=== PATIENT | male | born 1985 | race Caucasian/White ===

== ENCOUNTER 2017-11-07 10:50 | Observation (INO) | payer SELFPAY ==
[2017-11-07] MEDS ORDERED: LORazepam 2 MG/ML VIAL ONE ×3 (10:59→12:09)
[2017-11-07] MEDS ORDERED: NA CHLORIDE 0.9% 2,000 ML ONE (10:59)
[2017-11-07] MEDS ORDERED: ONDANSETRON 4 MG/2 ML VIAL ONE (11:10)
[2017-11-07 11:33] LABS: Protime INR 1.54
[2017-11-07 11:35] LABS: Absolute Lymphocytes (CBC) 1.2 K/uL (0.7-4.9); Absolute Monocytes 0.8 K/uL (0.1-1.3); Absolute Neutrophil 8.1 K/uL (1.8-8.0); Basophils % 0.7 % (0-1.3); Eosinophils % 0.4 % (0-4.4); Hematocrit 41.8 % (39.6-49.0); Lymphocytes % 11.8 % (15.3-44.8); MCH 30.2 pg (27.0-35.0); MCV 87.7 fL (80-100); MPV 7.9 fL (7.6-11.3); Monocytes % 7.6 % (3.3-12.3); RBC Red Blood Cell Count 4.77 M/uL (4.33-5.43)
[2017-11-07 12:12] LABS: ALT/SGPT 77 U/L (12-78); AST/SGOT 116 U/L (15-37); Alkaline Phosphatase 76 U/L (45-117); BUN Blood Urea Nitrogen 14 mg/dL (7-18); Bicarbonate 26 mmol/L (21-32); Bilirubin Direct 0.2 mg/dL (0-0.2); Bilirubin Total 0.6 mg/dL (0.2-1.0); Glucose Level 90 mg/dL (74-106); Potassium 3.2 mmol/L (3.5-5.1); Protein, Total 7.2 g/dL (6.4-8.2); Sodium Level 140 mmol/L (136-145)
[2017-11-07 12:26] LABS: Alcohol Serum/Plasma 4 mg/dL (<3); Creatine Phosphokinase 2631 U/L (39-308)
[2017-11-07 12:34] LABS: Barbiturates NEGATIVE (NEGATIVE); Benzodiazepines NEGATIVE (NEGATIVE); Cocaine NEGATIVE (NEGATIVE); METHAMPHETAM POSITIVE (NEGATIVE); Methadone NEGATIVE (NEGATIVE); Opiates NEGATIVE (NEGATIVE); Phencyclidine NEGATIVE (NEGATIVE); THC Cannibis POSITIVE (NEGATIVE)
[2017-11-07 12:34] LABS: Urine Blood NEGATIVE (NEG); Urine Glucose NEGATIVE (NEG); Urine Protein TRACE (NEG); Urine Specific Gravity >1.030 (1.005-1.030)
--- NOTE | 2017-11-07 12:42 | EDPHYS ---
Physician Documentation [facility] Name: Napoleon Shaw Age: 32 yrs Sex: Male : 1985 Arrival Date: 11/07/2017 Time: 10:51 Bed 3 Private MD: ED Physician Leandro Stockton HPI: 11/07 11:59 This 32 yrs old Male presents to ER via EMS with complaints of Drug Abuse. jr8 11:59 The patient presents to the emergency department after a known overdose, a result of jr8 recreational substance abuse. Context: Method: the patient has a confirmed or suspected ingestion, Time: for the last 4 days. Associated signs and symptoms: Pertinent positives: anxiety, nausea, vomiting. Severity of symptoms: At their worst the symptoms were moderate in the emergency department the symptoms are unchanged. The patient has experienced similar episodes in the past, a few times. The patient has not recently seen a physician. Patient with history of drug abuse in past. Stated that he had been doing bath salts for the past 4 days. After stopping them for past day stated that he now is uncontrollably shaking, having n/v, and anxiety . Historical: - Allergies: 10:53 Risperdal; la1 - PMHx: 10:53 None; la1 - Immunization history:: Adult Immunizations up to date. - Social history:: Smoking status: Patient uses tobacco products, chewing tobacco. - Ebola Screening: : No symptoms or risks identified at this time. ROS: 11:59 Eyes: Negative for injury, pain, redness, and discharge, ENT: Negative for injury, jr8 pain, and discharge, Neck: Negative for injury, pain, and swelling, Cardiovascular: Negative for chest pain, palpitations, and edema, Respiratory: Negative for shortness of breath, cough, wheezing, and pleuritic chest pain, Back: Negative for injury and pain, MS/Extremity: Negative for injury and deformity, Skin: Negative for injury, rash, and discoloration, Neuro: Negative for headache, weakness, numbness, tingling, and seizure. 11:59 Abdomen/GI: Positive for nausea and vomiting, Negative for abdominal pain, diarrhea, constipation, abdominal cramps, abdominal distension, anorexia, dysphagia, hematemesis, black/tarry stool, rectal pain, rectal bleeding, bowel incontinence, flatulence. 11:59 Psych: Positive for anxiety, drug dependence, Negative for drug dependence, suicide gesture, suicidal ideation. Exam: 11:59 Eyes: Pupils equal round and reactive to light, extra-ocular motions intact. Lids and jr8 lashes normal. Conjunctiva and sclera are non-icteric and not injected. Cornea within normal limits. Periorbital areas with no swelling, redness, or edema. ENT: Nares patent. No nasal discharge, no septal abnormalities noted. Tympanic membranes are normal and external auditory canals are clear. Oropharynx with no redness, swelling, or masses, exudates, or evidence of obstruction, uvula midline. Mucous membranes moist. Neck: Trachea midline, no thyromegaly or masses palpated, and no cervical lymphadenopathy. Supple, full range of motion without nuchal rigidity, or vertebral point tenderness. No Meningismus. Chest/axilla: Normal chest wall appearance and motion. Nontender with no deformity. No lesions are appreciated. Cardiovascular: Sinus Tachycardia with a normal S1 and S2. No gallops, murmurs, or rubs. Normal PMI, no JVD. No pulse deficits. Respiratory: Lungs have equal breath sounds bilaterally, clear to auscultation and percussion. No rales, rhonchi or wheezes noted. No increased work of breathing, no retractions or nasal flaring. Abdomen/GI: Soft, non-tender, with normal bowel sounds. No distension or tympany. No guarding or rebound. No evidence of tenderness throughout. Back: No spinal tenderness. No costovertebral tenderness. Full range of motion. Skin: Warm, dry with normal turgor. Normal color with no rashes, no lesions, and no evidence of cellulitis. MS/ Extremity: Pulses equal, no cyanosis. Neurovascular intact. Full, normal range of motion. Neuro: Awake and alert, GCS 15, oriented to person, place, time, and situation. Cranial nerves II-XII grossly intact. Motor strength 5/5 in all extremities. Sensory grossly intact. Cerebellar exam normal. Normal gait. 11:59 Psych: Behavior/mood is anxious, Affect is animated, Oriented to person, place, time, Patient has no thoughts/intents to harm self or others. Judgement / Insight is normal. Memory is normal. Delusions/hallucinations are not present. Vital Signs: 10:53 BP 140 / 83; Pulse 115; Resp 22; Pulse Ox 96% on R/A; Weight 77.11 kg; Height 5 ft. 7 la1 in. (170.18 cm); 11:27 BP 141 / 72; Pulse 104; Resp 19; Pulse Ox 100% on R/A; la1 12:09 BP 160 / 70; Pulse 107; Resp 19; Pulse Ox 100% on R/A; la1 13:11 BP 128 / 84; Pulse 82; Resp 16; Pulse Ox 100% on R/A; la1 14:15 BP 136 / 93; Pulse 72; Resp 16; Pulse Ox 100% on R/A; la1 14:15 BP 136 / 93; Pulse 65; Resp 18; Temp 97.5; Pulse Ox 99% on R/A; Pain 0/10; cc3 10:53 Body Mass Index 26.63 (77.11 kg, 170.18 cm) la1 MDM: 10:52 Patient medically screened. 8 12:40 Data reviewed: vital signs, nurses notes, lab test result(s), EKG. Data interpreted: jr8 Pulse oximetry: on room air is 100 %. Interpretation: normal. Counseling: I had a detailed discussion with the patient and/or guardian regarding: the historical points, exam findings, and any diagnostic results supporting the discharge/admit diagnosis, lab results, the need for further work-up and treatment in the hospital. Physician consultation: Fady Thomas MD was called at 12:41, was contacted at 12:41, regarding admission, to the telemetry unit. consult, patient's condition, and will see patient. 11/07 10:53 Order name: Acetaminophen; Complete Time: 12:27 11/07 10:53 Order name: Basic Metabolic Panel; Complete Time: 12:27 11/07 10:53 Order name: CBC with Diff; Complete Time: 11:44 11/07 10:53 Order name: ETOH Level; Complete Time: 12:27 11/07 10:53 Order name: Hepatic Function; Complete Time: 12:27 11/07 10:53 Order name: PT-INR; Complete Time: 11:44 11/07 10:53 Order name: Salicylate; Complete Time: 12:15 11/07 10:53 Order name: Urine Drug Screen; Complete Time: 12:36 11/07 10:53 Order name: CPK; Complete Time: 12:27 11/07 12:21 Order name: Urine Dipstick--Ancillary (enter results); Complete Time: 12:36 hb 11/07 10:53 Order name: EKG; Complete Time: 10:54 11/07 10:53 Order name: EKG - Nurse/Tech; Complete Time: 11:11 11/07 10:53 Order name: IV Saline Lock; Complete Time: 11:11 11/07 10:53 Order name: Labs collected and sent; Complete Time: 11:11 11/07 10:53 Order name: Urine Dipstick-Ancillary (obtain specimen); Complete Time: 12:22 Administered Medications: 11:10 Drug: NS 0.9% 1000 ml Route: IV; Rate: 1000 ml; Site: right antecubital; la1 12:24 Follow up: IV Status: Completed infusion la1 11:10 Drug: NS 0.9% 1000 ml Route: IV; Rate: 1000 ml; Site: right antecubital; la1 12:24 Follow up: IV Status: Completed infusion la1 11:10 Drug: Ativan 2 mg Route: IVP; Site: right antecubital; la1 12:24 Follow up: Response: No adverse reaction la1 11:11 Drug: Zofran 4 mg Route: IVP; Site: right antecubital; la1 12:24 Follow up: Response: No adverse reaction; Nausea is decreased la1 11:27 Drug: Ativan 2 mg Route: IVP; Site: right antecubital; la1 12:25 Follow up: Response: No adverse reaction la1 12:08 Drug: Ativan 2 mg Route: IVP; Site: right antecubital; la1 12:23 Follow up: Response: No adverse reaction la1 13:01 Drug: NS 0.9% 1000 ml Route: IV; Rate: 250 ml/hr; Site: right antecubital; hb 13:13 Follow up: IV Status: Infusion continued upon admission la1 Disposition: 11/07/17 12:42 Hospitalization ordered by Fady Thomas for Observation. Preliminary diagnosis are Rhabdomyolysis, Dehydration. - Bed requested for Telemetry/MedSurg (observation). - Status is Observation. cc3 - Condition is Stable. - Problem is new. - Symptoms have improved. UTI on Admission? No Addendum: 11/09/2017 15:36 Co-signature as Attending Physician, Leandro Stockton MD. g s Signatures: Dispatcher [employer] EDViji Fernandez, RN RN dw Kaleb Mayer PA PA jr8 Case Sherman RN RN la1 Eva Howard, RN RN Leandro Stockton MD MD Heydi Zuniga cc3 Corrections: (The following items were deleted from the chart) 11/07 14:14 12:42 Hospitalization Ordered by Fady Thomas MD for Observation. Preliminary diagnosis dw is Rhabdomyolysis; Dehydration. Bed requested for Telemetry/MedSurg (observation). Status is Observation. Condition is Stable. Problem is new. Symptoms have improved. UTI on Admission? No. jr8 14:55 14:14 11/07/2017 12:42 Hospitalization Ordered by Fady Thomas MD for Observation. cc3 Preliminary diagnosis is Rhabdomyolysis; Dehydration. Bed requested for Telemetry/MedSurg (observation). Status is Observation. Condition is Stable. Problem is new. Symptoms have improved. UTI on Admission? No. dw
--- NOTE | 2017-11-07 12:42 | ER ---
Nurse's Notes [facility] Name: Napoleon Shaw Age: 32 yrs Sex: Male : 1985 Arrival Date: 11/07/2017 Time: 10:51 Bed 3 Private MD: Diagnosis: Rhabdomyolysis;Dehydration Presentation: 11/07 10:51 Presenting complaint: Patient states: I took bath salts on Saturday and I have not been la1 able to sleep. Transition of care: patient was not received from another setting of care. Onset of symptoms was November 07, 2017. Risk Assessment: Do you want to hurt yourself or someone else? Patient reports no desire to harm self or others. Initial Sepsis Screen: Does the patient meet any 2 criteria? No. Patient's initial sepsis screen is negative. Does the patient have a suspected source of infection? No. Patient's initial sepsis screen is negative. Care prior to arrival: None. 10:51 Method Of Arrival: EMS: [facility] la1 10:51 Acuity: ANN 2 la1 Historical: - Allergies: 10:53 Risperdal; la1 - PMHx: 10:53 None; la1 - Immunization history:: Adult Immunizations up to date. - Social history:: Smoking status: Patient uses tobacco products, chewing tobacco. - Ebola Screening: : No symptoms or risks identified at this time. Screenin:02 Abuse screen: Denies threats or abuse. Denies injuries from another. Nutritional ph screening: No deficits noted. Tuberculosis screening: No symptoms or risk factors identified. Fall Risk None identified. Assessment: 11:01 Reassessment: Pocket knife given to hotel security officer. ph 11:10 General: Appears ill, Behavior is agitated, anxious. Pain: Denies pain. Neuro: Level of la1 Consciousness is awake, alert, obeys commands, confused, Oriented to person, place, time, situation. Cardiovascular: Capillary refill < 3 seconds Patient's skin is warm and dry. Respiratory: Airway is patent Respiratory effort is even, unlabored, Respiratory pattern is regular, symmetrical, Breath sounds are clear bilaterally. GI: Reports nausea, vomiting. : No signs and/or symptoms were reported regarding the genitourinary system. 13:13 Reassessment: No changes from previously documented assessment. Patient and/or family la1 updated on plan of care and expected duration. Pain level reassessed. Patient is alert, oriented x 3, equal unlabored respirations, skin warm/dry/pink. General: Behavior is calm, cooperative. 14:20 Reassessment: Patient appears in no apparent distress at this time. comfortably cc3 sleeping, no complaints noted. Overdose: 11:12 Patient took Bath salts on saturday. la1 Vital Signs: 10:53 BP 140 / 83; Pulse 115; Resp 22; Pulse Ox 96% on R/A; Weight 77.11 kg; Height 5 ft. 7 la1 in. (170.18 cm); 11:27 BP 141 / 72; Pulse 104; Resp 19; Pulse Ox 100% on R/A; la1 12:09 BP 160 / 70; Pulse 107; Resp 19; Pulse Ox 100% on R/A; la1 13:11 BP 128 / 84; Pulse 82; Resp 16; Pulse Ox 100% on R/A; la1 14:15 BP 136 / 93; Pulse 72; Resp 16; Pulse Ox 100% on R/A; la1 14:15 BP 136 / 93; Pulse 65; Resp 18; Temp 97.5; Pulse Ox 99% on R/A; Pain 0/10; cc3 10:53 Body Mass Index 26.63 (77.11 kg, 170.18 cm) la1 ED Course: 10:51 Patient arrived in ED. la1 10:51 EKG done, by ED staff, reviewed by Kaleb BILLS. eb 10:52 Triage completed. la1 10:52 [facility]. jr8 10:52 Leandro Stockton MD is Attending Physician. jr8 11:09 Case Sherman, LENNOX is Primary Nurse. la1 11:09 Arm band placed on right wrist. EKG completed in triage. Results shown to . la1 11:10 Inserted saline lock: 18 gauge in right antecubital area, using aseptic technique. la1 Blood collected. 11:12 Bed in low position. Side rails up X2. vehicle monitor technician on. Pulse ox on. NIBP on. la1 12:22 Urine Drug Screen Sent. eb 12:41 Fady Thomas MD is Hospitalizing Provider. jr8 14:20 No provider procedures requiring assistance completed. cc3 14:20 Patient admitted, IV remains in place. intact, No redness/swelling at site. cc3 14:30 Report given to Margaret HIGH for admission to room 201. cc3 Administered Medications: 11:10 Drug: NS 0.9% 1000 ml Route: IV; Rate: 1000 ml; Site: right antecubital; la1 12:24 Follow up: IV Status: Completed infusion la1 11:10 Drug: NS 0.9% 1000 ml Route: IV; Rate: 1000 ml; Site: right antecubital; la1 12:24 Follow up: IV Status: Completed infusion la1 11:10 Drug: Ativan 2 mg Route: IVP; Site: right antecubital; la1 12:24 Follow up: Response: No adverse reaction la1 11:11 Drug: Zofran 4 mg Route: IVP; Site: right antecubital; la1 12:24 Follow up: Response: No adverse reaction; Nausea is decreased la1 11:27 Drug: Ativan 2 mg Route: IVP; Site: right antecubital; la1 12:25 Follow up: Response: No adverse reaction la1 12:08 Drug: Ativan 2 mg Route: IVP; Site: right antecubital; la1 12:23 Follow up: Response: No adverse reaction la1 13:01 Drug: NS 0.9% 1000 ml Route: IV; Rate: 250 ml/hr; Site: right antecubital; hb 13:13 Follow up: IV Status: Infusion continued upon admission la1 Outcome: 12:42 Decision to Hospitalize by Provider. jr8 14:30 Admitted to Med/surg accompanied by tech, via stretcher, room 201, Report called to LENNOX Robles. 14:30 Condition: stable cc3 14:55 Patient left the ED. cc3 Signatures: Kaleb Mayer PA PA jr8 Case Sherman RN RN laSuzan Eric RN RN Eva Howard RN Margaret Pool Charlene ccWilliam Corrections: (The following items were deleted from the chart) 14:50 14:15 Temp 97.5F; la1 cc3
[2017-11-07] MEDS ORDERED: NA CHLORIDE 0.9% 1,000 ML ONE (13:02)
[2017-11-07] MEDS ORDERED: NA CHLORIDE 0.9% 1,000 ML IV SCH (14:44)
[2017-11-07 15:44] LABS: Urine Appearance CLEAR; Urine Bilirubin NEGATIVE (NEG); Urine Blood NEGATIVE (NEG); Urine Color YELLOW; Urine Glucose NEGATIVE (NEG); Urine Protein NEGATIVE (NEG); Urine Specific Gravity 1.015 (1.005-1.030); Urine Urobilinogen 0.2 mg/dL (0.2-1.0)
[2017-11-07 15:45] LABS: Urine Microscopic Reflex NO UMIC
[2017-11-07] MEDS ORDERED: HYDRALAZINE HCL 20 MG/ML VIAL IV PRN (17:24)
--- NOTE | 2017-11-07 17:27 | P.HP ---
Certification for Inpatient Patient admitted to: Inpatient With expected LOS: >2 Midnights Patient will require the following post-hospital care: None Practitioner: I am a practitioner with admitting privileges, knowledge of patient current condition, hospital course, and medical plan of care. Services: Services provided to patient in accordance with Admission requirements found in Title 42 Section 412.3 of the Code of Federal Regulations Patient History Date of Service: 11/07/17 History of Present Illness: 32 y/o man was sent to ER by EMS c/o shaking. He states he was using bath salts for several days, agiated, nervous, unable to sleep and vomiting. In ER, his CPK was elevated and he is admitted for further management Allergies risperidone [From Risperdal] Allergy (Verified 06/18/16 23:43) Unknown - Past Medical/Surgical History Diabetic: No -: Bipolar disorder -: Drug abuse Psychosocial/ Personal History: Not able to be obtained. - Social History Smoking Status: Unknown if ever smoked Alcohol use: Yes CD- Drugs: Yes Place of Residence: Home Review of Systems 10-point ROS is otherwise unremarkable Physical Examination - Vital Signs Temperature: 97.5 F Blood Pressure: 136/93 Pulse: 65 Respirations: 18 - Physical Exam General: In no apparent distress, Other HEENT: Atraumatic, PERRLA, Mucous membr. moist/pink, EOMI, Sclerae nonicteric Neck: Supple, 2+ carotid pulse no bruit, No LAD, Without JVD or thyroid abnormality Respiratory: Clear to auscultation bilaterally, Normal air movement Cardiovascular: Regular rate/rhythm, Normal S1 S2 Gastrointestinal: Normal bowel sounds, No tenderness Musculoskeletal: No tenderness Integumentary: No rashes Neurological: Normal gait, Normal speech, Normal strength at 5/5 x4 extr, Normal tone, Normal affect Lymphatics: No axilla or inguinal lymphadenopathy - Studies Laboratory Data (last 24 hrs) 11/07/17 11:00: PT 18.3 H, INR 1.54 11/07/17 11:00: WBC 10.2, Hgb 14.4, Hct 41.8, Plt Count 317 11/07/17 11:00: Sodium 140, Potassium 3.2 L, BUN 14, Creatinine 1.00, Glucose 90 , Total Bilirubin 0.6, AST 116 H, ALT 77, Alkaline Phosphatase 76 Assessment and Plan - Problems (Diagnosis) (1) Amphetamine abuse Onset Date: 06/19/16 Current Visit: Yes Status: Acute (2) Altered mental status Onset Date: 06/19/16 Current Visit: Yes Status: Acute Qualifiers: Altered mental status type: disorientation Qualified Code(s): R41.0 - Disorientation, unspecified (3) Bipolar disorder with psychotic features Onset Date: 06/19/16 Current Visit: Yes Status: Chronic (4) Hypokalemia Onset Date: 06/19/16 Current Visit: Yes Status: Acute (5) Rhabdomyolysis Onset Date: 06/19/16 Current Visit: Yes Status: Acute Qualifiers: Rhabdomyolysis type: non-traumatic - Plan --IVF repelacement with KCL --Ativan PRN --F/U renal and CPK - Advance Directives Does patient have a Living Will: No Does patient have a Durable POA for Healthcare: No
[2017-11-07] MEDS: D5 0.45 NS 1,000 ML with POTASSIUM CL 10 MEQ IV SCH ×2 (18:05)
--- NOTE | 2017-11-07 18:37 | EKG ---
Test Date: 2017-11-07 Test Time: 10:51:43 [employer]: EB MEASUREMENT RESULTS: Intervals: Rate: 101 WI: 132 QRSD: 72 QT: 382 QTc: 495 [place]: P: 64 WI: 132 QRS: 46 T: 52 INTERPRETIVE STATEMENTS: Sinus tachycardia Possible Left atrial enlargement Borderline ECG Compared to ECG 06/20/2016 00:27:42 Sinus rhythm no longer present Electronically Signed On 11-07-17 18:37:06 CDT by Ian Rocha
[2017-11-07] MEDS: LORazepam 2 MG/ML VIAL IV PRN (20:33)
[2017-11-07] MEDS: METOPROLOL TAR 50 MG TAB PO SCH (20:35)
[2017-11-08] MEDS: LORazepam 2 MG/ML VIAL IV PRN ×2 (02:14→06:33)
[2017-11-08] MEDS: D5 0.45 NS 1,000 ML with POTASSIUM CL 10 MEQ IV SCH ×2 (02:31)
[2017-11-08] MEDS ORDERED: clonazePAM 1 MG TAB PO ONE (04:40)
[2017-11-08] MEDS ORDERED: LORazepam 2 MG/ML VIAL IV ONE (06:24)
[2017-11-08 06:33] LABS: ALT/SGPT 54 U/L (12-78); AST/SGOT 63 U/L (15-37); Albumin 2.9 g/dL (3.4-5.0); Alkaline Phosphatase 55 U/L (45-117); BUN Blood Urea Nitrogen 5 mg/dL (7-18); Bicarbonate 26 mmol/L (21-32); Bilirubin Total 0.6 mg/dL (0.2-1.0); Creatine Phosphokinase 999 U/L (39-308); Glucose Level 92 mg/dL (74-106); Potassium 3.2 mmol/L (3.5-5.1); Protein, Total 5.6 g/dL (6.4-8.2); Sodium Level 140 mmol/L (136-145)
[2017-11-08] MEDS: METOPROLOL TAR 50 MG TAB PO SCH (09:00)
[2017-11-08] MEDS ORDERED: POTASSIUM CL SA 10 MEQ TAB PO ONE (09:47)
--- NOTE | 2017-11-08 15:17 | P.DS ---
Admission Date: 11/07/17 Discharge Date: 11/08/17 Disposition: AMA-LEFT AGAINST MEDICAL ADVIC - Problems (1) Amphetamine abuse Onset Date: 06/19/16 Status: Acute (2) Altered mental status Onset Date: 06/19/16 Status: Acute Qualifiers: Altered mental status type: disorientation Qualified Code(s): R41.0 - Disorientation, unspecified (3) Bipolar disorder with psychotic features Onset Date: 06/19/16 Status: Chronic (4) Hypokalemia Onset Date: 06/19/16 Status: Acute (5) Rhabdomyolysis Onset Date: 06/19/16 Status: Acute Qualifiers: Rhabdomyolysis type: non-traumatic Brief History of Present Illness: 32 y/o man was sent to ER by EMS c/o shaking. He states he was using bath salts for several days, agiated, nervous, unable to sleep and vomiting. In ER, his CPK was elevated and he is admitted for further management Hospital Course: He signed AMA and left hospital before I can see him Vital Signs/Physical Exam: Temp Pulse Resp BP Pulse Ox 98.2 F 65 16 115/60 99 11/08/17 08:00 11/08/17 09:00 11/08/17 08:00 11/08/17 09:00 11/08/17 08:00 Laboratory Data at Discharge: WBC 10.2 K/uL (4.3-10.9) 11/07/17 11:00 Hgb 14.4 g/dL (13.6-17.9) 11/07/17 11:00 Hct 41.8 % (39.6-49.0) 11/07/17 11:00 Plt Count 317 K/uL (152-406) 11/07/17 11:00 PT 18.3 SECONDS (9.5-12.5) H 11/07/17 11:00 INR 1.54 11/07/17 11:00 Sodium 140 mmol/L (136-145) 11/08/17 06:03 Potassium 3.2 mmol/L (3.5-5.1) L 11/08/17 06:03 BUN 5 mg/dL (7-18) L 11/08/17 06:03 Creatinine 0.70 mg/dL (0.55-1.3) 11/08/17 06:03 Glucose 92 mg/dL (74-106) 11/08/17 06:03 Total Bilirubin 0.6 mg/dL (0.2-1.0) 11/08/17 06:03 AST 63 U/L (15-37) H 11/08/17 06:03 ALT 54 U/L (12-78) 11/08/17 06:03 Alkaline Phosphatase 55 U/L (45-117) 11/08/17 06:03 Home Medications: NK [No Home Meds] 11/07/17
== END 2017-11-08 10:08 | disposition left against medical advice (07) ==
LOC: ER 10:50 → ERHOLD 12:50 → 2ND 14:30
PROVIDERS: ADMIT Internal Medicine Hematology & Oncology; ATTEND Internal Medicine Hematology & Oncology
DX: F15.10 Other stimulant abuse, uncomplicated (principal); F31.9 Bipolar disorder, unspecified; E87.6 Hypokalemia; M62.82 Rhabdomyolysis
CPT/HCPCS: 36415; 80048; 80053; 80076; 80307; 80320; 80329; 81003; 82550; 85025; 85610; 93005; 96361; 96374; 96375; 99285; G0378; J2405; J7030

== ENCOUNTER 2018-01-12 21:15 | Emergency (ER) | payer SELFPAY ==
--- NOTE | 2018-01-12 22:24 | EDPHYS ---
Physician Documentation [facility] Name: Napoleon Shaw Age: 32 yrs Sex: Male : 1985 Arrival Date: 01/12/2018 Time: 21:19 Bed 7 Private MD: ED Physician Prashanth Mancini HPI: 01/12 22:20 This 32 yrs old Male presents to ER via Ambulatory with complaints of rn INFECTED FOOT. 22:20 The patient presents with pain. The complaints affect the right foot and left foot. rn 22:21 Onset: The symptoms/episode began/occurred yesterday. Modifying factors: The symptoms rn are alleviated by nothing, the symptoms are aggravated by nothing. Severity of symptoms: At their worst the symptoms were mild, in the emergency department the symptoms are unchanged. The patient has experienced a previous episode. REports had foot infection last week, took abx, unknown kind, then stepped in dirty water yesterday, has blisters to feet, worried getting infection, no fever. . Historical: - Allergies: 21:53 Risperdal; aj1 - Home Meds: 21:53 None [Active]; aj1 - PMHx: 21:53 None; aj1 - PSHx: 21:53 None; aj1 - Immunization history:: Flu vaccine is not up to date. - Social history:: Smoking status: Patient/guardian denies using tobacco. - Ebola Screening: : Patient denies travel to an Ebola-affected area in the 21 days before illness onset. - Family history:: not pertinent. - Hospitalizations: : No recent hospitalization is reported. ROS: 22:21 Constitutional: Negative for fever, chills, and weight loss, Eyes: Negative for injury, rn pain, redness, and discharge, Cardiovascular: Negative for chest pain, palpitations, and edema, Respiratory: Negative for shortness of breath, cough, wheezing, and pleuritic chest pain, Abdomen/GI: Negative for abdominal pain, nausea, vomiting, diarrhea, and constipation, MS/Extremity: Negative for injury and deformity, Skin: + blisters to feet and pain Neuro: Negative for headache, weakness, numbness, tingling, and seizure. Exam: 22:21 Constitutional: Thin male, + psychomotor agitation MS/ Extremity: Pulses equal, no rn cyanosis. Neurovascular intact. Full, normal range of motion. Equal circumference. + a few non-infected pressure blisters to bottom of both feet. NO erythema/fluctuance/streaking. + multiple excoriations bilateral lower extremities. Vital Signs: 21:53 BP 124 / 88; Pulse 86; Resp 18; Temp 98.3; Pulse Ox 98% on R/A; Weight 72.57 kg (R); aj1 Height 5 ft. 8 in. (172.72 cm) (R); Pain 10/10; 21:53 Body Mass Index 24.33 (72.57 kg, 172.72 cm) aj1 MDM: 22:16 Patient medically screened. rn 22:21 Differential diagnosis: possible cellulitis, wound infection. Data reviewed: vital rn signs, nurses notes, and as a result, I will discharge patient. Counseling: I had a detailed discussion with the patient and/or guardian regarding: the historical points, exam findings, and any diagnostic results supporting the discharge/admit diagnosis, the need for outpatient follow up, to return to the emergency department if symptoms worsen or persist or if there are any questions or concerns that arise at home. Special discussion: I discussed with the patient/guardian in detail that at this point there is no indication for admission to the hospital. It is understood, however, that if the symptoms persist or worsen the patient needs to return immediately for re-evaluation. Administered Medications: No medications were administered Disposition: 01/12/18 22:24 Discharged to Home. Impression: Pain in left foot, Pain in right foot, Cellulitis of right lower limb, Cellulitis of left lower limb. - Condition is Stable. - Discharge Instructions: Cellulitis, Adult, Foot Pain. - Prescriptions for Doxycycline Monohydrate 100 mg Oral Tablet - take 1 tablet by ORAL route every 12 hours for 10 days; 20 tablet. - Medication Reconciliation Form, Thank You Letter, Antibiotic Education, Prescription Opioid Use form. - Follow up: Private Physician; When: As needed; Reason: Recheck today's complaints, Re-evaluation by your physician. - Problem is new. - Symptoms have improved. Signatures: Edith Rocha RN RN aj1 Prashanth Mancini MD MD rn Bryson, James, RN RN jb4 Corrections: (The following items were deleted from the chart) 22:32 22:24 01/12/2018 22:24 Discharged to Home. Impression: Pain in left foot; Pain in right jb4 foot; Cellulitis of right lower limb; Cellulitis of left lower limb. Condition is Stable. Forms are Medication Reconciliation Form, Thank You Letter, Antibiotic Education, Prescription Opioid Use. Follow up: Private Physician; When: As needed; Reason: Recheck today's complaints, Re-evaluation by your physician. Problem is new. Symptoms have improved. rn
--- NOTE | 2018-01-12 22:24 | ER ---
Nurse's Notes [facility] Name: Napoleon Shaw Age: 32 yrs Sex: Male : 1985 Arrival Date: 01/12/2018 Time: 21:19 Bed 7 Private MD: Diagnosis: Pain in left foot;Pain in right foot;Cellulitis of right lower limb;Cellulitis of left lower limb Presentation: 01/12 21:51 Presenting complaint: Patient states: "Basically I had an infection in this foot a week aj1 ago and I went to [place] and they took care of it, but then yesterday I got my shoes wet and the infection came back. This is the worst its ever been. Yeah. I need some Dilaudid" Denies fever. Transition of care: patient was not received from another setting of care. Onset of symptoms was January 12, 2018. Risk Assessment: Do you want to hurt yourself or someone else? Patient reports no desire to harm self or others. Initial Sepsis Screen: Does the patient meet any 2 criteria? HR > 90 bpm. Does the patient have a suspected source of infection? Yes: Skin breakdown/wound. Care prior to arrival: None. 21:51 Method Of Arrival: Ambulatory aj1 21:51 Acuity: ANN 4 aj1 Triage Assessment: 21:53 General: Appears in no apparent distress. comfortable, Behavior is cooperative, aj1 restless, erratic, patient is swaying in chair, picking at his feet and pulling at his hair during triage. . Pain: Complains of pain in left foot Pain currently is 10 out of 10 on a pain scale. Neuro: Level of Consciousness is awake, alert, obeys commands. Cardiovascular: Patient's skin is warm and dry. Respiratory: Airway is patent Respiratory effort is even, unlabored, Respiratory pattern is regular, symmetrical. Historical: - Allergies: 21:53 Risperdal; aj1 - Home Meds: 21:53 None [Active]; aj1 - PMHx: 21:53 None; aj1 - PSHx: 21:53 None; aj1 - Immunization history:: Flu vaccine is not up to date. - Social history:: Smoking status: Patient/guardian denies using tobacco. - Ebola Screening: : Patient denies travel to an Ebola-affected area in the 21 days before illness onset. - Family history:: not pertinent. - Hospitalizations: : No recent hospitalization is reported. Screenin:02 Abuse screen: Denies threats or abuse. Nutritional screening: No deficits noted. bb Tuberculosis screening: No symptoms or risk factors identified. Fall Risk None identified. Assessment: 22:02 General: Appears uncomfortable, slender, unkempt, Behavior is cooperative, agitated. bb Pain: Complains of pain in left foot. Neuro: Level of Consciousness is awake, alert, obeys commands, Oriented to person, place, time, situation. Cardiovascular: No deficits noted. Respiratory: Respiratory effort is even, unlabored. GI: No deficits noted. No signs and/or symptoms were reported involving the gastrointestinal system. Derm: multiple superficial abrasions, scratches over legs and overall body. Musculoskeletal: Circulation, motion, and sensation intact. Vital Signs: 21:53 BP 124 / 88; Pulse 86; Resp 18; Temp 98.3; Pulse Ox 98% on R/A; Weight 72.57 kg (R); aj1 Height 5 ft. 8 in. (172.72 cm) (R); Pain 10/10; 21:53 Body Mass Index 24.33 (72.57 kg, 172.72 cm) aj1 ED Course: 21:19 Patient arrived in ED. es 21:52 Triage completed. aj1 21:53 Arm band placed on Patient placed in an exam room. aj1 22:02 Patient has correct armband on for positive identification. Bed in low position. Call bb light in reach. Pulse ox on. NIBP on. 22:16 Prashanth Mancini MD is Attending Physician. rn 22:30 No provider procedures requiring assistance completed. Patient did not have IV access jb4 during this emergency room visit. 22:32 Ruddy Escalona, LENNOX is Primary Nurse. jb4 Administered Medications: No medications were administered Outcome: 22:24 Discharge ordered by . rn 22:30 Discharged to home ambulatory. jb4 22:30 Condition: stable 22:30 Discharge instructions given to patient, Instructed on discharge instructions, follow up and referral plans. medication usage, Demonstrated understanding of instructions, follow-up care, medications, Prescriptions given X 1. 22:32 Patient left the ED. jb4 Signatures: Edith Rocha RN RN aj1 Lyons, Navya es Leary, Vidhi, Prashanth Long RN, MD MD rn Bryson, James, RN RN jb4 Corrections: (The following items were deleted from the chart) 21:55 21:51 Presenting complaint: Patient states: "Basically I had an infection in this foot aj1 a week ago and I went to [place] and they took care of it, but then yesterday I got my shoes wet and the infection came back" Denies fever aj1
== END 2018-01-12 22:32 | disposition home or self-care (01) ==
LOC: ER 21:15
DX: L03.116 Cellulitis of left lower limb (principal); L03.115 Cellulitis of right lower limb; Z88.8 Allergy status to other drugs, medicaments and biological substances
CPT/HCPCS: 99283

== ENCOUNTER 2018-01-13 06:01 | Emergency (ER) | payer SELFPAY ==
--- NOTE | 2018-01-13 06:15 | EDPHYS ---
Physician Documentation [facility] Name: Napoleon Shaw Age: 32 yrs Sex: Male : 1985 Arrival Date: 01/13/2018 Time: 06:04 Bed 6 Private MD: ED Physician Prashanth Mancini HPI: 01/13 06:35 This 32 yrs old Male presents to ER via EMS with complaints of foot pain. snw 06:35 Onset: The symptoms/episode began/occurred and became worse. Associated signs and snw symptoms: Pertinent positives: The patient does not have any pertinent positive signs or symptoms associated with pediatric illness. It is unknown whether or not the patient has had similar symptoms in the past. The patient has been recently seen at the [facility] Emergency Department, hours ago - given Doxy for skin lesions . Historical: - Allergies: 06:07 Risperdal; jb4 - Home Meds: 06:07 None [Active]; jb4 - PMHx: 06:07 None; jb4 - PSHx: 06:07 None; jb4 - Immunization history:: Adult Immunizations unknown. - Social history:: Smoking status: unknown. - Ebola Screening: : No symptoms or risks identified at this time. ROS: 06:19 Constitutional: Negative for fever, chills, and weight loss, Eyes: Negative for injury, snw pain, redness, and discharge, ENT: Negative for injury, pain, and discharge, Neck: Negative for injury, pain, and swelling, Cardiovascular: Negative for chest pain, palpitations, and edema, Respiratory: Negative for shortness of breath, cough, wheezing, and pleuritic chest pain, Abdomen/GI: Negative for abdominal pain, nausea, vomiting, diarrhea, and constipation, Back: Negative for injury and pain, : Negative for injury, bleeding, discharge, and swelling, MS/Extremity: Negative for injury and deformity, Neuro: Negative for headache, weakness, numbness, tingling, and seizure. 06:19 Skin: Positive for abrasion(s), foot pain. Exam: 06:16 Head/Face: Normocephalic, atraumatic. snw 06:16 ENT: Nares patent. No nasal discharge, no septal abnormalities noted. Tympanic membranes are normal and external auditory canals are clear. Oropharynx with no redness, swelling, or masses, exudates, or evidence of obstruction, uvula midline. Mucous membranes moist. Neck: Trachea midline, no thyromegaly or masses palpated, and no cervical lymphadenopathy. Supple, full range of motion without nuchal rigidity, or vertebral point tenderness. No Meningismus. Chest/axilla: Normal chest wall appearance and motion. Nontender with no deformity. No lesions are appreciated. Cardiovascular: Regular rate and rhythm with a normal S1 and S2. No gallops, murmurs, or rubs. Normal PMI, no JVD. No pulse deficits. Respiratory: Lungs have equal breath sounds bilaterally, clear to auscultation and percussion. No rales, rhonchi or wheezes noted. No increased work of breathing, no retractions or nasal flaring. Abdomen/GI: Soft, non-tender, with normal bowel sounds. No distension or tympany. No guarding or rebound. No evidence of tenderness throughout. Back: No spinal tenderness. No costovertebral tenderness. Full range of motion. 06:16 MS/ Extremity: Pulses equal, no cyanosis. Neurovascular intact. Full, normal range of motion. Neuro: Awake and alert, GCS 15, oriented to person, place, time, and situation. Cranial nerves II-XII grossly intact. Motor strength 5/5 in all extremities. Sensory grossly intact. Cerebellar exam normal. Normal gait. 06:16 Constitutional: The patient appears awake, restless, unkempt. 06:16 Eyes: Conjunctiva: injected, bilaterally. 06:16 Skin: Appearance: normal except for affected area, excoriations to bilateral lower extremities. 06:16 Psych: Behavior/mood is anxious, Affect is animated, Oriented to person, place, Patient has no thoughts/intents to harm self or others. Judgement / Insight is impaired. sitting up rocking, lies back, sits suddenly repetitively. Vital Signs: 06:07 BP 122 / 68; Pulse 96; Resp 18; Temp 97.7; Pulse Ox 100% on R/A; Weight 72.57 kg; jb4 Height 5 ft. 7 in. (170.18 cm); Pain 10/10; 06:07 Body Mass Index 25.06 (72.57 kg, 170.18 cm) jb4 MDM: 06:08 Patient medically screened. snw 06:18 Data reviewed: vital signs, nurses notes. Data interpreted: Pulse oximetry: on room air snw is 100 %. Interpretation: normal. Counseling: I had a detailed discussion with the patient and/or guardian regarding: the historical points, exam findings, and any diagnostic results supporting the discharge/admit diagnosis, the need for outpatient follow up, to return to the emergency department if symptoms worsen or persist or if there are any questions or concerns that arise at home. Special discussion: Based on the history and exam findings, there is no indication for further emergent testing or inpatient evaluation. I discussed with the patient/guardian the need to see the primary care provider for further evaluation of the symptoms. Administered Medications: 06: Drug: TORadol 60 mg Route: IM; Site: right deltoid; jb4 06:27 Follow up: Response: No adverse reaction; Pain is decreased jb4 Disposition: 01/13/18 06:15 Discharged to Home. Impression: Pain in unspecified foot. - Condition is Stable. - Discharge Instructions: Musculoskeletal Pain, Foot Pain. - Medication Reconciliation Form, Thank You Letter, Antibiotic Education, Prescription Opioid Use form. - Follow up: Private Physician; When: 2 - 3 days; Reason: Recheck today's complaints, Continuance of care, Re-evaluation by your physician. Follow up: Emergency Department; When: As needed; Reason: Worsening of condition. - Notes: continue doxycycline Addendum: 01/16/2018 07:12 Co-signature as Attending Physician, Prashanth Mancini MD. r n Signatures: Edith Willson, CHRONOMETER REPAIRER-C CHRONOMETER REPAIRER-Csnw Prashanth Mancini MD MD rn Bryson, James, RN RN jb4 Corrections: (The following items were deleted from the chart) 01/13 06:28 06:15 01/13/2018 06:15 Discharged to Home. Impression: Pain in unspecified foot. jb4 Condition is Stable. Forms are Medication Reconciliation Form, Thank You Letter, Antibiotic Education, Prescription Opioid Use. Follow up: Private Physician; When: 2 - 3 days; Reason: Recheck today's complaints, Continuance of care, Re-evaluation by your physician. Follow up: Emergency Department; When: As needed; Reason: Worsening of condition. snw
--- NOTE | 2018-01-13 06:15 | ER ---
Nurse's Notes [facility] Name: Napoleon Shaw Age: 32 yrs Sex: Male : 1985 Arrival Date: 01/13/2018 Time: 06:04 Bed 6 Private MD: Diagnosis: Pain in unspecified foot Presentation: 01/13 06:05 Presenting complaint: EMS states: Pt flagged down a engraver copperplate in the [facility] parking lot, jb4 stated he felt like he needed to come back due to the pain being so bad in his feet. Transition of care: patient was not received from another setting of care. Onset of symptoms was January 13, 2018. Risk Assessment: Do you want to hurt yourself or someone else? Patient reports no desire to harm self or others. Initial Sepsis Screen: Does the patient meet any 2 criteria? No. Patient's initial sepsis screen is negative. Does the patient have a suspected source of infection? No. Patient's initial sepsis screen is negative. Care prior to arrival: None. 06:05 Method Of Arrival: EMS: [place] [id number] 06:05 Acuity: ANN 5 jb4 Triage Assessment: 06:07 General: Appears in no apparent distress. uncomfortable, Behavior is cooperative, jb4 agitated. Pain: Complains of pain in right foot and left foot Pain does not radiate. Pain currently is 10 out of 10 on a pain scale. EENT: No signs and/or symptoms were reported regarding the EENT system. Neuro: Level of Consciousness is awake, alert, obeys commands, Oriented to person, place, time, situation. Cardiovascular: Patient's skin is warm and dry. Respiratory: Airway is patent Respiratory effort is even, unlabored, Respiratory pattern is regular, symmetrical. GI: No signs and/or symptoms were reported involving the gastrointestinal system. : No signs and/or symptoms were reported regarding the genitourinary system. Derm: Skin is intact, Skin is pink, warm \T\ dry. Musculoskeletal: Circulation, motion, and sensation intact. Historical: - Allergies: 06:07 Risperdal; jb4 - Home Meds: 06:07 None [Active]; jb4 - PMHx: 06:07 None; jb4 - PSHx: 06:07 None; jb4 - Immunization history:: Adult Immunizations unknown. - Social history:: Smoking status: unknown. - Ebola Screening: : No symptoms or risks identified at this time. Screenin:11 Abuse screen: Denies threats or abuse. Nutritional screening: No deficits noted. jb4 Tuberculosis screening: No symptoms or risk factors identified. Fall Risk None identified. Assessment: 06:11 General: See triage assessment.. jb4 Vital Signs: 06:07 BP 122 / 68; Pulse 96; Resp 18; Temp 97.7; Pulse Ox 100% on R/A; Weight 72.57 kg; jb4 Height 5 ft. 7 in. (170.18 cm); Pain 10/10; 06:07 Body Mass Index 25.06 (72.57 kg, 170.18 cm) jb4 ED Course: 06:04 Patient arrived in ED. ak1 06:05 Ruddy Escalona, RN is Primary Nurse. jb4 06:06 Triage completed. jb4 06:07 Arm band placed on right wrist. jb4 06:08 Edith Willson FNP-C [facility]. snw 06:08 Prashanth Mancini MD is Attending Physician. snw 06:11 Patient has correct armband on for positive identification. Call light in reach. Side jb4 rails up X 1. Pulse ox on. NIBP on. 06:27 No provider procedures requiring assistance completed. Patient did not have IV access jb4 during this emergency room visit. Administered Medications: 06:27 Drug: TORadol 60 mg Route: IM; Site: right deltoid; jb4 06:27 Follow up: Response: No adverse reaction; Pain is decreased jb4 Outcome: 06:15 Discharge ordered by . snw 06:27 Discharged to home ambulatory. jb4 06:27 Condition: stable 06:27 Discharge instructions given to patient, Instructed on discharge instructions, follow up and referral plans. Demonstrated understanding of instructions, follow-up care. 06:28 Patient left the ED. jb4 Signatures: Edith Willson FNP-C FNP-Miranda Solis RN RN ak1 Ruddy Escalona RN RN jb4
[2018-01-13] MEDS ORDERED: KETOROLAC 30 MG/ML INJ ONE (06:25)
== END 2018-01-13 06:28 | disposition home or self-care (01) ==
LOC: ER 06:01
DX: M79.671 Pain in right foot (principal); Z88.8 Allergy status to other drugs, medicaments and biological substances
CPT/HCPCS: 96372; 99283

== ENCOUNTER 2024-11-02 23:09 | Inpatient (IN) | payer SELFPAY ==
[2024-11-02] MEDS ORDERED: NA CHLORIDE 0.9% 1,000 ML ONE (23:29)
[2024-11-02] MEDS ORDERED: LORazepam 2 MG/ML VIAL ONE (23:29)
[2024-11-02 23:50] LABS: Absolute Lymphocytes (CBC) 2.3 K/uL (0.7-4.9); Hematocrit 47.6 % (39.6-49.0); Hemoglobin 16.2 g/dL (13.6-17.9); MCH 29.2 pg (27.0-35.0); MCHC 34.2 g/dL (32.0-36.0); MCV 85.4 fL (80-100); MPV 8.1 fL (7.6-11.3); Nucleated RBC Absolute Count 0.0 (0-0); Nucleated Red Blood Cells % 0.1 % (0-0); RBC Red Blood Cell Count 5.57 M/uL (4.33-5.43); White Blood Count 20.00 thou/uL (4.3-10.9)
[2024-11-03] MEDS ORDERED: ONDANSETRON 4 MG/2 ML VIAL ONE (00:17)
[2024-11-03 00:33] LABS: Anion Gap 17.8 mEq/L (5.0-15.0); BUN Blood Urea Nitrogen 42.0 mg/dL (7-18); Glucose Level 157.0 mg/dL (74-106); Magnesium 2.2 mg/dL (1.6-2.4); Potassium 3.8 mEq/L (3.5-5.1); Troponin High Sensitivity 31.2 pg/mL (<58.9)
--- NOTE | 2024-11-03 00:39 | ER ---
Nurse's Notes [facility] Name: Napoleon Shaw Age: 39 yrs Sex: Male : 1985 Arrival Date: 11/02/2024 Time: 23:09 Bed 14 Private MD: Diagnosis: Acute kidney failure, unspecified;Rhabdomyolysis Presentation: 11/02 23:21 Chief complaint: Patient states: of chest pain that started two days ago after doing cp4 meth. Patient is erratic and will not stay still for vital. 23:21 Method Of Arrival: Wheelchair cp4 23:22 Coronavirus screen: Client denies travel out of the [place] in the last 14 days. At this cp4 time, the client does not indicate any symptoms associated with coronavirus-19. Ebola Screen: Patient negative for fever greater than or equal to 101.5 degrees Fahrenheit, and additional compatible Ebola Virus Disease symptoms Patient denies exposure to infectious person. Patient denies travel to an Ebola-affected area in the 21 days before illness onset. No symptoms or risks identified at this time. Initial Sepsis Screen: Does the patient meet any 2 criteria? HR > 90 bpm. No. Patient's initial sepsis screen is negative. Does the patient have a suspected source of infection? No. Patient's initial sepsis screen is negative. Risk Assessment: Do you want to hurt yourself or someone else? Patient reports no desire to harm self or others. Onset of symptoms was October 31, 2024. 23:22 Acuity: ANN 3 cp4 Triage Assessment: 23:23 General: Appears in no apparent distress. unkempt, emaciated, Behavior is anxious, cp4 restless. Pain: Complains of pain in chest. Cardiovascular: Patient's skin is warm and dry. Rhythm is sinus tachycardia. Historical: - Allergies: 23:23 Risperdal; cp4 - Immunization history:: Adult Immunizations not up to date. - Infectious Disease History:: Denies. - Social history:: Smoking status: unknown Patient uses street drugs, Methamphetamine (Meth). Screenin:40 [facility] ED Fall Risk Assessment (Adult) History of falling in the last 3 months, rg5 including since admission No falls in past 3 months (0 pts) Confusion or Disorientation Yes (5 pts) Intoxicated or Sedated Yes (3 pts) Impaired Gait Yes (1 pt) Mobility Assist Device Used Yes (1 pt) Altered Elimination No (0 pt) Score/Fall Risk Level 3 or more points = High Risk Oriented to surroundings, Maintained a safe environment, Educated pt \T\ family on fall prevention, incl call for assistance when getting out of bed, Hourly rounding (assess needs \T\ fall precautionary measures) done. Tuberculosis screening: No symptoms or risk factors identified. 11/03 03:17 Abuse screen: Denies threats or abuse. Denies injuries from another. Nutritional cp4 screening: No deficits noted. Assessment: 11/02 23:40 General: Appears uncomfortable, Behavior is anxious, fussy, restless. Pain: Complains rg5 of pain in chest Pain radiates to neck Quality of pain is described as aching, Pain began gradually. Neuro: Level of Consciousness is awake. Cardiovascular: Patient's skin is warm and dry. Rhythm is sinus tachycardia. Respiratory: Airway is patent Trachea midline Respiratory effort is even, unlabored, Breath sounds are clear. GI: Abdomen is flat, non-distended. : No signs and/or symptoms were reported regarding the genitourinary system. EENT: No signs and/or symptoms were reported regarding the EENT system. Derm: Skin is intact, Skin is normal. Musculoskeletal: Circulation, motion, and sensation intact. Range of motion: intact in all extremities. 11/03 00:13 Reassessment: Patient appears in no apparent distress at this time. No changes from cp4 previously documented assessment. Patient and/or family updated on plan of care and expected duration. Pain level reassessed. Patient is alert, oriented x 3, equal unlabored respirations, skin warm/dry/pink. Vital Signs: 11/02 23:22 Pulse 118; Resp 20; Temp 97.6; Pulse Ox 98% ; Weight 68.04 kg; Height 5 ft. 7 in. ; cp4 Pain 10/10; 23:27 BP 125 / 94; Pulse 114; Resp 19; Pulse Ox 100% on R/A; rg5 11/03 00:00 BP 120 / 86; Pulse 115; Resp 18; Pulse Ox 95% ; cp4 01:30 BP 140 / 100; Pulse 85; Resp 18; Pulse Ox 99% ; cp4 03:00 BP 130 / 99; Pulse 85; Resp 18; Pulse Ox 99% ; cp4 11/02 23:22 Body Mass Index 23.49 (68.04 kg, 170.18 cm) cp4 11/02 23:22 Pain Scale: Adult cp4 ED Course: 11/02 23:10 Patient arrived in ED. mr 23:11 Carlos Michell, SWETHA [facility]. kb 23:11 Alex Goodwin MD is Attending Physician. kb 23:18 Armando Hurtado, LENNOX is Primary Nurse. rg5 23:23 Triage completed. cp4 23:23 Arm band placed on right wrist. Patient placed in waiting room. cp4 23:28 Inserted saline lock: 18 gauge in right antecubital area, using aseptic technique. ts3 Blood collected. Flushed with 10 mL NS. 23:29 Initial lab(s) drawn, by ED staff, sent to lab. ts3 23:29 EKG done, by ED staff, by food service technician. ts3 23:40 Patient has correct armband on for positive identification. Bed in low position. Call rg5 light in reach. Side rails up X2. Client placed on continuous cardiac and pulse oximetry monitoring. NIBP monitoring applied. secured entrance monitor on. Pulse ox on. NIBP on. Door closed. Noise minimized. Warm blanket given. 23:40 No provider procedures requiring assistance completed. Patient maintains SpO2 rg5 saturation greater than 95% on room air. 23:44 XRAY Chest (1 view) In Process Unspecified. EDMS 11/03 00:39 Marc Shin MD is Hospitalizing Provider. kb 03:17 Provided Education on: admission. cp4 03:17 Patient admitted, IV remains in place. cp4 Administered Medications: 11/02 23:37 Drug: NS 0.9% IV 1000 ml IV at 1000 ml once; to be given as a bolus over 60 minutes rg5 Route: IV; Rate: 1000 ml; Site: right antecubital; 11/03 00:56 Follow up: IV Status: Completed infusion cp4 11/02 23:37 Drug: Ativan IVP 1 mg IVP once Route: IVP; Site: right antecubital; rg5 11/03 00:20 Follow up: Response: No adverse reaction cp4 00:20 Drug: Ondansetron IVP 4 mg IVP once; over 2 minutes Route: IVP; Site: right antecubital;cp4 00:29 Follow up: Response: No adverse reaction cp4 00:42 Drug: NS 0.9% IV 1000 ml IV at 1000 ml once; to be given as a bolus over 60 minutes cp4 Route: IV; Rate: 1000 ml; Site: right antecubital; 02:14 Follow up: IV Status: Completed infusion cp4 00:55 Drug: Geodon IM 40 mg IM once Route: IM; Site: right deltoid; cp4 00:56 Follow up: Response: No adverse reaction cp4 00:56 Drug: Famotidine IVP 20 mg IVP once; dilute with 10 mL 0.9% NaCl; give over 2 minutes cp4 Route: IVP; Site: right antecubital; 00:56 Follow up: Response: No adverse reaction cp4 Medication: 11/02 23:40 VIS not applicable for this client. rg5 Outcome: 11/03 00:39 Decision to Hospitalize by Provider. kb 03:17 Admitted to Med/surg via wheelchair, room 230, with chart, cp4 03:17 Condition: stable 03:17 Instructed on the need for admit, 03:18 Patient left the ED. cp4 Signatures: Dispatcher [employer] EDMS Michell Gonzalez, NATIONAL ACCOUNT REPRESENTATIVE-C NATIONAL ACCOUNT REPRESENTATIVE-Ckb Promise Dos Santos, Reg Reg mr AracelializaTrini cp4 Armando Hurtado, RN RN rg5 Princess Gonzalez ts3 Corrections: (The following items were deleted from the chart) 02:25 01:30 BP 124 / 84; Pulse 113bpm; Resp 18bpm; Pulse Ox 99%; cp4 cp4
--- NOTE | 2024-11-03 00:39 | EDPHYS ---
Physician Documentation [facility] Name: Napoleon Shaw Age: 39 yrs Sex: Male : 1985 Arrival Date: 11/02/2024 Time: 23:09 Bed 14 Private MD: ED Physician Alex Goodwin HPI: 11/03 00:02 This 39 yrs old Male presents to ER via Wheelchair with complaints of Chest Pain. kb 00:02 Patient is a 39-year-old male who presents for shortness of breath that started kb yesterday chest pain that started today. Patient reports he did meth 2 days ago. Patient reports cramping and spasming to muscles.. Historical: - Allergies: 11/02 23:23 Risperdal; cp4 - Immunization history:: Adult Immunizations not up to date. - Infectious Disease History:: Denies. - Social history:: Smoking status: unknown Patient uses street drugs, Methamphetamine (Meth). ROS: 11/03 00:02 Constitutional: As per HPI kb Exam: 11/02 23:24 ECG was reviewed by the Attending Physician. kb 11/03 00:02 Head/Face: Normocephalic, atraumatic. ENT: Moist Mucous membranes Cardiovascular: kb Tachycardic rate Respiratory: Respirations even and unlabored. No increased work of breathing. Talking in full sentences Abdomen/GI: Soft, non-tender. No distention Skin: Warm, dry with normal turgor. Normal color. MS/ Extremity: Pulses equal, no cyanosis. Neurovascular intact. Full, normal range of motion. Neuro: Awake and alert, GCS 15, oriented to person, place, time, and situation. 00:03 Constitutional: The patient appears alert, awake, anxious, kb Vital Signs: 11/02 23:22 Pulse 118; Resp 20; Temp 97.6; Pulse Ox 98% ; Weight 68.04 kg; Height 5 ft. 7 in. ; cp4 Pain 10/10; 23:27 BP 125 / 94; Pulse 114; Resp 19; Pulse Ox 100% on R/A; rg5 11/03 00:00 BP 120 / 86; Pulse 115; Resp 18; Pulse Ox 95% ; cp4 01:30 BP 140 / 100; Pulse 85; Resp 18; Pulse Ox 99% ; cp4 03:00 BP 130 / 99; Pulse 85; Resp 18; Pulse Ox 99% ; cp4 11/02 23:22 Body Mass Index 23.49 (68.04 kg, 170.18 cm) cp4 11/02 23:22 Pain Scale: Adult cp4 MDM: 11/02 23:11 Medical Screening Exam initiated 11/03 00:38 Data reviewed: vital signs, nurses notes. Consideration of Admission/Observation kb Patient was admitted/placed on observation. Escalation of care including admission/observation considered. Management of patient was discussed with the following: Hospitalist: Dr Shin accepts pt for admission. Independent interpretation of the following test(s) in the Emergency Department X-Ray: My interpretation is No pneumothorax, pneumonia on CXR. Counseling: I had a detailed discussion with the patient and/or guardian regarding the historical points, exam findings, and any diagnostic results supporting the discharge/admit diagnosis, lab results, radiology results, the need for further work-up and treatment in the hospital. 11/02 23:14 Order name: Basic Metabolic Panel; Complete Time: 01:03 kb 11/02 23:14 Order name: CBC with Diff; Complete Time: 00:58 kb 11/02 23:14 Order name: Magnesium; Complete Time: 01:03 kb 11/02 23:14 Order name: Troponin HS; Complete Time: 01:03 kb 11/02 23:14 Order name: CPK; Complete Time: 01:03 kb 11/02 23:22 Order name: UDS cp4 11/03 00:09 Order name: Manual Differential; Complete Time: 00:58 EDMS 11/03 00:50 Order name: Liver (Hepatic) Function; Complete Time: 01:03 EDMS 11/03 00:50 Order name: CBC with Automated Diff EDMS 11/03 00:50 Order name: CBC with Automated Diff EDMS 11/03 00:50 Order name: Comprehensive Metabolic Panel EDMS 11/03 00:50 Order name: Comprehensive Metabolic Panel EDVT 11/02 23:14 Order name: XRAY Chest (1 view) kb 11/02 23:14 Order name: EKG; Complete Time: 23:15 kb 11/03 00:50 Order name: CONS Physician Consult EDVT 11/02 23:14 Order name: Cardiac monitoring; Complete Time: 23:28 kb 11/02 23:14 Order name: EKG - Nurse/Tech; Complete Time: 23:28 kb 11/02 23:14 Order name: IV Saline Lock; Complete Time: 23:28 kb 11/02 23:14 Order name: Labs collected and sent; Complete Time: 23:28 kb 11/02 23:14 Order name: O2 Per Protocol; Complete Time: 23:28 kb 11/02 23:14 Order name: O2 Sat Monitoring; Complete Time: 23:28 kb EC/11 23:24 Rate is 111 beats/min. Rhythm is regular. QRS Ingram is Normal. MS interval is normal at kb 116 msec. QRS interval is normal at 76 msec. QT interval is normal at 443 msec. Administered Medications: 23:37 Drug: NS 0.9% IV 1000 ml IV at 1000 ml once; to be given as a bolus over 60 minutes rg5 Route: IV; Rate: 1000 ml; Site: right antecubital; 11/03 00:56 Follow up: IV Status: Completed infusion cp4 11/02 23:37 Drug: Ativan IVP 1 mg IVP once Route: IVP; Site: right antecubital; rg5 11/03 00:20 Follow up: Response: No adverse reaction cp4 00:20 Drug: Ondansetron IVP 4 mg IVP once; over 2 minutes Route: IVP; Site: right antecubital;cp4 00:29 Follow up: Response: No adverse reaction cp4 00:42 Drug: NS 0.9% IV 1000 ml IV at 1000 ml once; to be given as a bolus over 60 minutes cp4 Route: IV; Rate: 1000 ml; Site: right antecubital; 02:14 Follow up: IV Status: Completed infusion cp4 00:55 Drug: Geodon IM 40 mg IM once Route: IM; Site: right deltoid; cp4 00:56 Follow up: Response: No adverse reaction cp4 00:56 Drug: Famotidine IVP 20 mg IVP once; dilute with 10 mL 0.9% NaCl; give over 2 minutes cp4 Route: IVP; Site: right antecubital; 00:56 Follow up: Response: No adverse reaction cp4 Disposition: 05:41 Co-signature as Attending Physician, Alex Goodwin MD I agree with the assessment sp4 and plan of care. I reviewed the patient's care provided by Advanced Practice Provider \T\ agree w/ the diagnosis \T\ care plan. I personally saw the pt \T\ performed a substantive portion of the visit, incldng all aspects of the (History/Exam/Medical Decision Making). Disposition Summary: 11/03/24 00:39 Hospitalization Ordered Notes: Hospitalization Status: Inpatient Admission kb Provider: Marc Shin Location: Telemetry/MedSurg (Inpatient) kb Condition: Stable kb Problem: new kb Symptoms: are unchanged kb Bed/Room Type: Standard Room Assignment: 230(11/03/24 02:15) rv1 Diagnosis - Acute kidney failure, unspecified kb - Rhabdomyolysis kb Forms: - Medication Reconciliation Form kb - SBAR form kb - Leadership Thank You Letter kb Signatures: Dispatcher [employer] EDMichell Browne FNP-C FNP-Kristy Walker rv1 Alex Goodwin MD MD sp4 Trini Warren cp4 Armando Hurtado, LENNOX RN rg5 Corrections: (The following items were deleted from the chart) 00:04 00:02 Constitutional: This is a well developed, well nourished patient who is awake, kb alert, and in no acute distress. Head/Face: Normocephalic, atraumatic. ENT: Moist Mucous membranes Cardiovascular: Tachycardic rate Respiratory: Respirations even and unlabored. No increased work of breathing. Talking in full sentences Abdomen/GI: Soft, non-tender. No distention Skin: Warm, dry with normal turgor. Normal color. MS/ Extremity: Pulses equal, no cyanosis. Neurovascular intact. Full, normal range of motion. Neuro: Awake and alert, GCS 15, oriented to person, place, time, and situation. kb 00:48 00:47 Liver (Hepatic) Function ordered. EDMS EDMS 02:15 00:39 kb rv1
[2024-11-03] MEDS ORDERED: NA CHLORIDE 0.9% 1,000 ML ONE (00:41)
--- NOTE | 2024-11-03 00:44 | P.HP ---
Certification for Inpatient Patient admitted to: Inpatient With expected LOS: >2 Midnights Practitioner: I am a practitioner with admitting privileges, knowledge of patient current condition, hospital course, and medical plan of care. Services: Services provided to patient in accordance with Admission requirements found in Title 42 Section 412.3 of the Code of Federal Regulations Patient History Date of Service: 11/03/24 Reason for admission: SOB History of Present Illness: 39 yrs old Male with no significant past medical history other than bipolar disorder and substance abuse presents to ER via Wheelchair with complaints of muscle cramps and spasm. Patient is a poor historian hence most of the history is obtained from the chart review and also talking with the ER physician. He also has a history of substance abuse and he told me that he did meth 2 days ago. Patient started having cramping and spasm of muscles. Denies any fever or chills. No nausea vomiting or diarrhea. No sick contacts. Patient denies any chest pain. Patient was assessed in the ER and was admitted for further management of acute kidney injury and rhabdomyolysis. Allergies risperidone [From Risperdal] Allergy (Verified 06/18/16 23:43) Unknown Home Medications: NK [No Home Meds] 11/07/17 - Past Medical/Surgical History Diabetic: No Past Medical History: Reviewed- Non-Contributory -: Bipolar disorder -: Drug abuse Past Surgical History: Reviewed- Non-Contributory Psychosocial/ Personal History: Not able to be obtained. - Family History Family History: Reviewed- Non-Contributory - Social History Smoking Status: Current every day smoker Alcohol use: Yes CD- Drugs: Yes Review of Systems 10-point ROS is otherwise unremarkable Physical Examination - Vital Signs Temperature: 97.6 F Blood Pressure: 128/76 Pulse: 118 Respirations: 18 Pulse Ox (%): 94 - Physical Exam General: Alert, Cooperative, Mild distress HEENT: Atraumatic, Normocephalic Neck: Supple Respiratory: Clear to auscultation bilaterally, Normal air movement Cardiovascular: Normal S1 S2, Other (Tachycardic) Capillary refill: <2 Seconds Gastrointestinal: Soft and benign, W/out hepatosplenomegaly Musculoskeletal: No clubbing, No erythema Integumentary: No rashes Neurological: Other (Alert awake nonfocal) Lymphatics: No axilla or inguinal lymphadenopathy - Studies Laboratory Data (last 24 hrs) 11/02/24 11/02/24 23:25 23:25 WBC 20.00 H Hgb 16.2 Hct 47.6 Plt Count 368 Sodium 132 L Potassium 3.8 BUN 42 H Creatinine 4.24 H Glucose 157 H Magnesium 2.2 Assessment and Plan - Plan Rhabdomyolysis Acute kidney injury Elevated LFTs Hypercalcemia Hyponatremia Dehydration Leukocytosis Elevated CK levels History of substance abuse Plan aggressive hydration Monitor CK levels Renal parameters monitor Electrolytes monitor and replace accordingly Monitor LFTs in a.m. Nephrology consulted Monitor CBC in a.m. Advise alcohol cessation Offered measures History of substance abuse Advised cessation GI/DVT prophylaxis Advance directive full code Discharge Plan: Home Plan to discharge in: 48 Hours - Advance Directives Does patient have a Living Will: No Does patient have a Durable POA for Healthcare: No - Code Status/Comfort Care Code Status: Full Code Time Spent Managing Pts Care (In Minutes): 48
[2024-11-03] MEDS ORDERED: ONDANSETRON 4 MG/2 ML VIAL IV PRN (00:45)
[2024-11-03] MEDS ORDERED: ACETAMINOPHEN 325 MG TABLET PO PRN (00:45)
[2024-11-03] MEDS ORDERED: FAMOTIDINE 20 MG/2 ML VIAL IV ONE (00:47)
[2024-11-03] MEDS ORDERED: ZIPRASIDONE MESYLA 20 MG/VIAL IM ONE (00:47)
[2024-11-03] MEDS ORDERED: WATER FOR INJ,STERILE 10 ML ONE (00:47)
[2024-11-03 00:52] LABS: Differential Total Cells Count 100; Segmented Neutrophils 84 % (40-80)
[2024-11-03 00:53] LABS: Blood Morphology Comment NOT SEEN (NOT SEEN)
[2024-11-03 01:02] LABS: ALT/SGPT 96.0 U/L (16-61); AST/SGOT 119.0 U/L (15-37); Albumin 6.1 g/dL (3.4-5.0); Albumin/Globulin Ratio 1.5 (1.1-1.8); Alkaline Phosphatase 107.0 U/L (45-117); Bilirubin Indirect, Calculated 0.8 mg/dL (0.2-0.8); Globulin 4.2 g/dL (2.3-3.5)
--- NOTE | 2024-11-03 01:16 | RAD REPORT ---
EXAM DESCRIPTION: Chest Single View CLINICAL HISTORY: CHEST PAIN TECHNIQUE: AP chest COMPARISON: October 29 FINDINGS: CHEST: Heart: The cardiomediastinal silhouette is within normal limits. Lungs: No focal consolidation. Mediastinum: Unremarkable Pleura: No appreciable effusion. No pneumothorax. Bones: Multiple old right rib fractures IMPRESSION: No acute cardiopulmonary disease. Electronically signed by: Orlando Baez MD 11/03/2024 12:21 AM CDT RP Due to temporary technical issues with the PACS/YellowBrck reporting system, reports are being carla d by the in-house radiologist without review as a courtesy to ensure prompt reporting the interpreting radiologist is fully responsible for the content of the report Transcribed Date/Time: 11/03/2024 1:15 AM
[2024-11-03 03:38] VITALS: O2SAT 98
[2024-11-03] MEDS: NA CHLORIDE 0.9% 1,000 ML IV SCH ×2 (04:04→07:43)
[2024-11-03 04:13] VITALS: BMI 23.5
[2024-11-03] MEDS: ENOXAPARIN 30 MG/0.3 ML SQ SCH (07:57)
[2024-11-03 08:21] LABS: Anion Gap 11.5 mEq/L (5.0-15.0); BUN Blood Urea Nitrogen 43.0 mg/dL (7-18); Glucose Level 101.0 mg/dL (74-106); Magnesium 2.3 mg/dL (1.6-2.4); Potassium 3.5 mEq/L (3.5-5.1)
[2024-11-03] MEDS: clonazePAM 0.5 MG TAB PO PRN (11:38)
[2024-11-03 12:22] VITALS: BP 131/69; TEMP 97.6
--- NOTE | 2024-11-03 15:44 | P.PN ---
Subjective Date of Service: 11/03/24 Chief Complaint: SOB Subjective: Improving <Nguyen Jorge - Last Filed: 11/03/24 15:39> Date of Service: 11/03/24 <Ziggy Jacobo - Last Filed: 11/03/24 16:24> Review of Systems General: Unremarkable Eyes: Unremarkable ENT: Unremarkable Respiratory: Unremarkable Cardiovascular: Unremarkable Gastrointestinal: Unremarkable Genitourinary: Unremarkable Musculoskeletal: Unremarkable Integumentary: Unremarkable Neurological: Unremarkable Lymphatics: Unremarkable <Nguyen Jorge - Last Filed: 11/03/24 15:39> Physical Examination - Vital Signs Temperature: 97.6 F Blood Pressure: 131/69 Pulse: 108 Respirations: 18 Pulse Ox (%): 100 - Physical Exam General: Alert, In no apparent distress, Oriented x3, Cooperative HEENT: Atraumatic, PERRLA, EOMI Neck: Supple, JVD not distended Respiratory: Clear to auscultation bilaterally, Normal air movement Cardiovascular: No edema, Regular rate/rhythm, Normal S1 S2 Capillary refill: <2 Seconds Gastrointestinal: Normal bowel sounds, Non-distended, No tenderness Musculoskeletal: No clubbing, No tenderness Integumentary: No rashes Neurological: Normal speech, Normal tone, Normal affect Lymphatics: No axilla or inguinal lymphadenopathy - Studies Laboratory Data (last 24 hrs) 11/02/24 11/02/24 23:25 23:25 WBC 20.00 H Hgb 16.2 Hct 47.6 Plt Count 368 Sodium 132 L Potassium 3.8 BUN 42 H Creatinine 4.24 H Glucose 157 H Magnesium 2.2 Total Bilirubin 1.1 H AST 119 H ALT 96 H Alkaline Phosphatase 107 <Nguyen Jorge - Last Filed: 11/03/24 15:39> - Studies Laboratory Data (last 24 hrs) 11/02/24 11/02/24 23:25 23:25 WBC 20.00 H Hgb 16.2 Hct 47.6 Plt Count 368 Sodium 132 L Potassium 3.8 BUN 42 H Creatinine 4.24 H Glucose 157 H Magnesium 2.2 Total Bilirubin 1.1 H AST 119 H ALT 96 H Alkaline Phosphatase 107 <DonnellNehemiasmarlene - Last Filed: 11/03/24 16:24> Assessment And Plan - Plan Assessment and Plan - Plan Interval history. 11/03/2024. Patient seen at bedside. Patient's clinical symptoms improving. Patient's renal functions\CPK improving with IV hydration. WBC noted to be elevated. Patient kept insisting that he wants to leave the hospital. Patient counseled on need to stay in the hospital to be able to get to a stable condition. Will continue to monitor patient's clinical conditions. Fall precautions. Continue supportive care. Rhabdomyolysis Acute kidney injury Elevated LFTs Hypercalcemia Hyponatremia Dehydration Leukocytosis Elevated CK levels History of substance abuse Plan aggressive hydration Monitor CK levels Renal parameters monitor Electrolytes monitor and replace accordingly Monitor LFTs in a.m. Nephrology consulted Monitor CBC in a.m. Advise alcohol cessation Offered measures History of substance abuse Advised cessation GI/DVT prophylaxis Advance directive full code Discharge Plan: Home Plan to discharge in: 48 Hours Discharge Plan: Home Plan to discharge in: 48 Hours - Code Status/Comfort Care Code Status Assessed: Yes Physician Review: Patient Assessed, Agree with Above Assessment and Plan Critical Care: No <Nguyen Jorge - Last Filed: 11/03/24 15:39> Physician Review: Patient Assessed, Agree with Above Assessment and Plan <Ziggy Jacobo - Last Filed: 11/03/24 16:24>
--- NOTE | 2024-11-03 15:57 | P.PN ---
Date of Service: 11/03/24 Patient requested to be discharged from the hospital. Patient is not clinically stable to be discharged. Explained plan of care to patient and explained to patient the risk of leaving AMA. Patient kept insisting on leaving. Nursing staff informed attending doctor that patient left AMA as he planned.
--- NOTE | 2024-11-03 16:35 | P.DS ---
Admission Date: 11/03/24 Discharge Date: 11/03/24 Reason for Admission: SOB Consultations: Nephrology Procedures: None Brief History of Present Illness: 39 yrs old Male with no significant past medical history other than bipolar dis order and substance abuse presents to ER via Wheelchair with complaints of muscle cramps and spasm. Patient is a poor historian hence most of the history is obtained from the chart review and also talking with the ER physician. He also has a history of substance abuse and he told me that he did meth 2 days ago. Patient started having cramping and spasm of muscles. Denies any fever or chills. No nausea vomiting or diarrhea. No sick contacts. Patient denies any chest pain. Patient was assessed in the ER and was admitted for further management of acute kidney injury and rhabdomyolysis. Hospital Course: Patient is a 39 yrs old Male with past medical history significant for bipolar disorder and substance abuse presents to ER via Wheelchair with complaints of mu scle cramps and spasm. Patient was diagnosed with Rhabdomyolysis, DARREN, transaminitis and some electrolyte derangement. Patient was started on aggressive IV hydration. Electrolytes abnormality were corrected. Nephrology was consulted. Patient's clinical symptoms were noted to be improving. Patient's renal functions\CPK improved with IV hydration. WBC noted to be elevated. Patient requested to be discharged from the hospital. Patient is not clinically stable to be discharged. Explained plan of care to patient and explained to patient the risk of leaving AMA. Patient kept insisting on leaving. Nursing staff informed attending doctor that patient left AMA as he planned. <Nguyen Jorge - Last Filed: 11/03/24 16:30> Admission Date: 11/03/24 Discharge Date: 11/03/24 <Ziggy Jacobo - Last Filed: 11/03/24 17:16> Disposition: AMA-LEFT AGAINST MEDICAL ADVIC Discharge Condition: FAIR Vital Signs/Physical Exam: Temp Pulse Resp BP Pulse Ox 97.6 F 108 H 18 131/69 100 11/03/24 15:44 11/03/24 15:44 11/03/24 15:44 11/03/24 15:44 11/03/24 15:44 General: Alert, In no apparent distress, Oriented x3, Cooperative HEENT: Atraumatic, PERRLA, EOMI Neck: Supple, JVD not distended Respiratory: Clear to auscultation bilaterally, Normal air movement Cardiovascular: No edema, Regular rate/rhythm, Normal S1 S2 Capillary refill: <2 Seconds Gastrointestinal: Normal bowel sounds, Non-distended, No tenderness Musculoskeletal: No swelling, No tenderness Integumentary: No rashes, No breakdown Neurological: Normal speech, Normal tone, Normal affect Lymphatics: No axilla or inguinal lymphadenopathy Laboratory Data at Discharge: WBC 20.00 thou/uL (4.3-10.9) H 11/02/24 23:25 Hgb 16.2 g/dL (13.6-17.9) 11/02/24 23:25 Hct 47.6 % (39.6-49.0) 11/02/24 23:25 Plt Count 368 thou/uL (152-406) 11/02/24 23:25 Sodium 136 mEq/L (136-145) D 11/03/24 07:17 Potassium 3.5 mEq/L (3.5-5.1) 11/03/24 07:17 BUN 43 mg/dL (7-18) H 11/03/24 07:17 Creatinine 2.75 mg/dL (0.70-1.30) H 11/03/24 07:17 Glucose 101 mg/dL (74-106) 11/03/24 07:17 Phosphorus 5.3 mg/dL (2.5-4.9) H 11/03/24 07:17 Magnesium 2.3 mg/dL (1.6-2.4) 11/03/24 07:17 Total Bilirubin Cancelled 11/03/24 00:45 AST Cancelled 11/03/24 00:45 ALT Cancelled 11/03/24 00:45 Alkaline Phosphatase Cancelled 11/03/24 00:45 <Nguyen Jorge E - Last Filed: 11/03/24 16:30> Vital Signs/Physical Exam: Temp Pulse Resp BP Pulse Ox 97.6 F 108 H 18 131/69 100 11/03/24 15:44 11/03/24 15:44 11/03/24 15:44 11/03/24 15:44 11/03/24 15:44 Laboratory Data at Discharge: WBC 20.00 thou/uL (4.3-10.9) H 11/02/24 23:25 Hgb 16.2 g/dL (13.6-17.9) 11/02/24 23:25 Hct 47.6 % (39.6-49.0) 11/02/24 23:25 Plt Count 368 thou/uL (152-406) 11/02/24 23:25 Sodium 136 mEq/L (136-145) D 11/03/24 07:17 Potassium 3.5 mEq/L (3.5-5.1) 11/03/24 07:17 BUN 43 mg/dL (7-18) H 11/03/24 07:17 Creatinine 2.75 mg/dL (0.70-1.30) H 11/03/24 07:17 Glucose 101 mg/dL (74-106) 11/03/24 07:17 Phosphorus 5.3 mg/dL (2.5-4.9) H 11/03/24 07:17 Magnesium 2.3 mg/dL (1.6-2.4) 11/03/24 07:17 Total Bilirubin Cancelled 11/03/24 00:45 AST Cancelled 11/03/24 00:45 ALT Cancelled 11/03/24 00:45 Alkaline Phosphatase Cancelled 11/03/24 00:45 <Ziggy Jacobo - Last Filed: 11/03/24 17:16> Diet: Regular Time spent managing pt's care (in minutes): 30 <Nguyen Jorge - Last Filed: 11/03/24 16:30> Physician Review: Patient Assessed, Agree with Above Assessment and Plan <Ziggy Jacobo - Last Filed: 11/03/24 17:16> Home Medications: NK [No Home Meds] 11/07/17 Physician Discharge Instructions: Left AMA Followup: NONE,NONE [Primary Care Provider] -
== END 2024-11-03 13:08 | disposition left against medical advice (07) | DRG 683 ==
LOC: ER 23:09 → ERHOLD 11-03 00:45 → 2ND 11-03 02:24
PROVIDERS: ADMIT Family Medicine; ATTEND Family Medicine
DX: N17.9 Acute kidney failure, unspecified (principal); E87.1 Hypo-osmolality and hyponatremia; M62.82 Rhabdomyolysis; E83.52 Hypercalcemia; E86.0 Dehydration; F31.9 Bipolar disorder, unspecified; D72.829 Elevated white blood cell count, unspecified; F17.200 Nicotine dependence, unspecified, uncomplicated; R79.89 Other specified abnormal findings of blood chemistry; Z88.8 Allergy status to other drugs, medicaments and biological substances; Z53.29 Procedure and treatment not carried out because of patient's decision for other reasons
CPT/HCPCS: 36415; 71045; 80048; 80076; 82550; 83735; 84100; 84484; 85025; 93005; 94760; 96361; 96372; 96374; 96375; 99285; J1650; J2405; J3486; J7030

== ENCOUNTER 2024-11-05 02:23 | Emergency (ER) | payer SELFPAY ==
[2024-11-05] MEDS ORDERED: NA CHLORIDE 0.9% 1,000 ML ONE (03:03)
[2024-11-05] MEDS ORDERED: HYDROCODONE/APAP 5/325 MG TAB ONE (03:03)
[2024-11-05 03:08] LABS: Absolute Lymphocytes (CBC) 2.3 K/uL (0.7-4.9); Hematocrit 35.7 % (39.6-49.0); Hemoglobin 12.4 g/dL (13.6-17.9); MCH 29.4 pg (27.0-35.0); MCHC 34.6 g/dL (32.0-36.0); MCV 84.9 fL (80-100); MPV 7.9 fL (7.6-11.3); Nucleated RBC Absolute Count 0.0 (0-0); Nucleated Red Blood Cells % 0.0 % (0-0); RBC Red Blood Cell Count 4.20 M/uL (4.33-5.43); White Blood Count 10.10 thou/uL (4.3-10.9)
[2024-11-05] MEDS ORDERED: QUETIAPINE 25 MG TAB ONE (03:35)
[2024-11-05 03:55] LABS: METHAMPHETAM NEGATIVE (NEGATIVE); THC Cannibis POSITIVE (NEGATIVE)
[2024-11-05 03:55] LABS: Anion Gap 6.3 mEq/L (5.0-15.0); BUN Blood Urea Nitrogen 19.0 mg/dL (7-18); Glucose Level 129.0 mg/dL (74-106); Potassium 3.3 mEq/L (3.5-5.1)
--- NOTE | 2024-11-05 04:38 | ER ---
Nurse's Notes [facility] Name: Napoleon Shaw Age: 39 yrs Sex: Male : 1985 Arrival Date: 11/05/2024 Time: 02:23 Bed 19 Private MD: Diagnosis: Dehydration;Other muscle spasm;Muscle weakness (generalized) Presentation: 11/05 02:35 Chief complaint: Patient states: MAURA leg pain. Coronavirus screen: Client denies travel lg3 out of the [place] in the last 14 days. At this time, the client does not indicate any symptoms associated with coronavirus-19. Ebola Screen: No symptoms or risks identified at this time. Risk Assessment: Do you want to hurt yourself or someone else? Patient reports no desire to harm self or others. Onset of symptoms is unknown. 02:35 Method Of Arrival: EMS: [facility] lg3 02:35 Acuity: ANN 3 lg3 02:35 Initial Sepsis Screen: Does the patient meet any 2 criteria? No. Patient's initial lg3 sepsis screen is negative. Does the patient have a suspected source of infection? No. Patient's initial sepsis screen is negative. Triage Assessment: 02:36 General: Appears in no apparent distress. comfortable, unkempt, Behavior is agitated, lg3 anxious, restless. Pain: Complains of pain in right leg and left leg. EENT: No deficits noted. No signs and/or symptoms were reported regarding the EENT system. Neuro: Nelson Agitation-Sedation Scale (RASS): +1 Restless Level of Consciousness is awake, stuporous, Oriented to person, place, situation. Cardiovascular: No deficits noted. Heart tones S1 S2 present Capillary refill < 3 seconds Clubbing of nail beds is absent JVD is absent Patient's skin is warm and dry. Respiratory: No deficits noted. Airway is patent Respiratory effort is even, unlabored, Respiratory pattern is regular, symmetrical, Breath sounds are clear bilaterally. GI: No deficits noted. No signs and/or symptoms were reported involving the gastrointestinal system. : No signs and/or symptoms were reported regarding the genitourinary system. Derm: No deficits noted. Skin is intact, is healthy with good turgor, Skin is dry, Skin is normal, Skin temperature is warm. Musculoskeletal: Circulation, motion, and sensation intact. Range of motion: intact in all extremities, Reports pain in right leg and left leg. Historical: - Allergies: 02:36 Risperdal; lg3 - Home Meds: 02:36 Seroquel Oral [Active]; lg3 - PMHx: 02:36 Unable to Obtain; lg3 - PSHx: 02:36 Unable to Obtain; lg3 - Immunization history:: Adult Immunizations up to date. - Infectious Disease History:: Denies. - Social history:: Smoking status: Patient denies any tobacco usage or history of. Patient uses alcohol, occasionally. street drugs, Methamphetamine (Meth). - Family history:: not pertinent. - Hospitalizations: : The patient was recently seen at [facility]. Screenin:39 [facility] [place] ED Fall Risk Assessment (Adult) History of falling in the last 3 months, lg3 including since admission No falls in past 3 months (0 pts) Confusion or Disorientation Yes (5 pts) Intoxicated or Sedated No (0 pts) Impaired Gait No (0 pts) Mobility Assist Device Used No (0 pt) Altered Elimination No (0 pt) Score/Fall Risk Level 3 or more points = High Risk Oriented to surroundings, Maintained a safe environment, Educated pt \T\ family on fall prevention, incl call for assistance when getting out of bed, Assessed \T\ reinforced patient's understanding of fall precautions. Abuse screen: Denies threats or abuse. Denies injuries from another. Nutritional screening: No deficits noted. Tuberculosis screening: No symptoms or risk factors identified. Assessment: 02:39 General: see triage assessment. lg3 03:46 Reassessment: Patient appears in no apparent distress at this time. No changes from lg3 previously documented assessment. Patient and/or family updated on plan of care and expected duration. Pain level reassessed. Patient is alert, oriented x 3, equal unlabored respirations, skin warm/dry/pink. 04:39 General: PT refusing DC at this time. provider notified . lg3 04:46 General: PT cursing obscenities to staff, physician and other patients. [employer] notified . lg3 04:53 General: PT escorted from ED by [employer]. lg3 Vital Signs: 02:35 BP 144 / 92; Pulse 94; Resp 16 S; Temp 98.1(O); Pulse Ox 100% on R/A; Weight 52.16 kg lg3 (R); Height 5 ft. 8 in. (R); 03:46 BP 137 / 88; Pulse 79; Resp 17 S; Pulse Ox 100% on R/A; lg3 04:55 lg3 02:35 Body Mass Index 17.49 (52.16 kg, 172.72 cm) lg3 04:55 PT refused vitals prior to DC lg3 ED Course: 02:24 Patient arrived in ED. vk 02:24 Prashanth Mancini MD is Attending Physician. rn 02:36 Triage completed. lg3 02:36 Arm band placed on right wrist. lg3 02:39 Patient has correct armband on for positive identification. Placed in gown. Bed in low lg3 position. Call light in reach. Side rails up X 1. Client placed on continuous cardiac and pulse oximetry monitoring. NIBP monitoring applied. Door closed. Noise minimized. Warm blanket given. Pillow given. 02:39 Initial lab(s) drawn, by ED staff, sent to lab. EKG done, by ED staff, reviewed by lg3 Prashanth Mancini MD. Inserted saline lock: 18 gauge in left antecubital area, using aseptic technique. Blood collected. Flushed with 10 mL NS. 02:51 Initial lab(s) drawn, by greenskeeper laborer, sent to lab. ts3 03:00 Urine collected: clean catch specimen, sent to lab. ts3 03:01 Hyun Alanis, LENNOX is Primary Nurse. lg3 04:55 No provider procedures requiring assistance completed. IV discontinued, intact, lg3 bleeding controlled, No redness/swelling at site. Pressure dressing applied. Administered Medications: 03:22 Drug: NS 0.9% IV 1000 ml IV at 1000 ml once; to be given as a bolus over 60 minutes lg3 Route: IV; Rate: 1000 ml; Site: left antecubital; 04:41 Follow up: Response: No adverse reaction; IV Status: Completed infusion; IV Intake: lg3 1000ml 03:22 Drug: HYDROcodone-acetaminophen PO 5 mg-325 mg 1 tabs PO once Route: PO; lg3 04:41 Follow up: Response: No adverse reaction lg3 03:46 Drug: SEROquel PO 25 mg PO once Route: PO; lg3 04:41 Follow up: Response: No adverse reaction lg3 04:41 Not Given (Patient Refused): haloperidol5 mg IVP once lg3 Medication: 02:39 VIS not applicable for this client. lg3 Intake: 04:41 IV: 1000ml; Total: 1000ml. lg3 Outcome: 04:37 Discharge ordered by . rn 04:55 Discharged to home ambulatory, lg3 04:55 Condition: stable 04:55 Discharge instructions given to patient, Instructed on discharge instructions, follow up and referral plans. Demonstrated understanding of instructions, follow-up care, 05:03 Patient left the ED. lg3 Signatures: Prashanth Mancini MD MD rn AbleHyun RN RN lg3 Cristy Loving Taisha ts3
--- NOTE | 2024-11-05 04:38 | EDPHYS ---
Physician Documentation [facility] Name: Napoleon Shaw Age: 39 yrs Sex: Male : 1985 Arrival Date: 11/05/2024 Time: : Bed 19 Private MD: ED Physician Prashanth Mancini HPI: 11/05 02:41 This 39 yrs old Male presents to ER via EMS with complaints of leg pain. rn 02:45 Patient reports was admitted this past week for rhabdomyolysis and acute renal failure, rn he left AMA 2 days ago. Patient is homeless and has been out in the heat and walking a lot. Patient reports achiness to both legs. Told to return if anything worsens.. Historical: - Allergies: 02:36 Risperdal; lg3 - Home Meds: 02:36 Seroquel Oral [Active]; lg3 - PMHx: 02:36 Unable to Obtain; lg3 - PSHx: 02:36 Unable to Obtain; lg3 - Immunization history:: Adult Immunizations up to date. - Infectious Disease History:: Denies. - Social history:: Smoking status: Patient denies any tobacco usage or history of. Patient uses alcohol, occasionally. street drugs, Methamphetamine (Meth). - Family history:: not pertinent. - Hospitalizations: : The patient was recently seen at [facility]. ROS: 02:45 Constitutional: Negative for fever, chills, and weight loss, Neck: Negative for injury, rn pain, and swelling, Cardiovascular: Negative for chest pain, palpitations, and edema, Respiratory: Negative for shortness of breath, cough, wheezing, and pleuritic chest pain, Abdomen/GI: Negative for abdominal pain, nausea, vomiting, diarrhea, and constipation, MS/Extremity: Positive for aches and pains in bilateral legs, no swelling Skin: Positive for blisters to feet Neuro: Negative for headache, weakness, numbness, tingling, and seizure, Exam: 02:45 Constitutional: Disheveled, no acute distress Head/Face: Normocephalic, atraumatic. phd intern: Dry mucous membranes Cardiovascular: Regular rate and rhythm. No pulse deficits. Respiratory: Speaking full sentences, unlabored. Skin: Superficial blisters noted to bilateral feet MS/ Extremity: Pulses equal, no cyanosis. Neurovascular intact. Full, normal range of motion. Equal circumference. Neuro: Awake and alert, GCS 15 04:18 ECG was reviewed by the Attending Physician. rn Vital Signs: 02:35 BP 144 / 92; Pulse 94; Resp 16 S; Temp 98.1(O); Pulse Ox 100% on R/A; Weight 52.16 kg lg3 (R); Height 5 ft. 8 in. (R); 03:46 BP 137 / 88; Pulse 79; Resp 17 S; Pulse Ox 100% on R/A; lg3 04:55 lg3 02:35 Body Mass Index 17.49 (52.16 kg, 172.72 cm) lg3 04:55 PT refused vitals prior to DC lg3 MDM: 02:24 Medical Screening Exam initiated rn 04:19 ED course: Total CPK is downtrending compared to recent admission, normal renal rn function now. Updated patient with this good news and he became upset. Patient became agitated. Patient threatening staff. Haldol ordered. Low threshold to call superintendent pipelines if becomes physical. 04:22 Differential Diagnosis Dehydration, rhabdomyolysis, renal failure, anxiety, architectural intern disorder, noncompliance with medication, drug use. Data reviewed: vital signs, nurses notes, lab test result(s), and as a result, I will discharge patient. Counseling: I had a detailed discussion with the patient and/or guardian regarding the historical points, exam findings, and any diagnostic results supporting the discharge/admit diagnosis, lab results, the need for outpatient follow up, to return to the emergency department if symptoms worsen or persist or if there are any questions or concerns that arise at home. Response to treatment: the patient's symptoms have markedly improved after treatment, and as a result, I will discharge patient. ED course: Patient becoming verbally abusive, refuses medication, refuses discharge. Police called.. 04:36 ED course: Patient is leaving in the care of police.. rn 04:36 Special discussion: I discussed with the patient/guardian in detail that at this point rn there is no indication for admission to the hospital. It is understood, however, that if the symptoms persist or worsen the patient needs to return immediately for re-evaluation. Based on the history and exam findings, there is no indication for further emergent testing or inpatient evaluation. I discussed with the patient/guardian the need to see the primary care provider for further evaluation of the symptoms. 11/05 02:29 Order name: CBC with Diff; Complete Time: 03:59 rn 11/05 02:29 Order name: Basic Metabolic Panel; Complete Time: 03:59 rn 11/05 02:29 Order name: CK; Complete Time: 03:59 rn 11/05 02:30 Order name: Urine Drug Screen; Complete Time: 03:59 rn 11/05 02:30 Order name: EKG; Complete Time: 02:30 rn 11/05 02:29 Order name: IV Start; Complete Time: 02:51 rn 11/05 02:30 Order name: Cardiac monitoring; Complete Time: 02:51 rn 11/05 02:30 Order name: EKG - Nurse/Tech; Complete Time: 02:51 rn EC:18 Rate is 89 beats/min. Rhythm is regular. QRS [place] is Normal. [place] interval is normal. QRS rn interval is normal. No Q waves. T waves are Normal. No ST changes noted. Clinical impression: NSR w/ Non-specific ST/T Changes. Interpreted by me. Reviewed by me. Administered Medications: 03:22 Drug: NS 0.9% IV 1000 ml IV at 1000 ml once; to be given as a bolus over 60 minutes lg3 Route: IV; Rate: 1000 ml; Site: left antecubital; 04:41 Follow up: Response: No adverse reaction; IV Status: Completed infusion; IV Intake: lg3 1000ml 03:22 Drug: HYDROcodone-acetaminophen PO 5 mg-325 mg 1 tabs PO once Route: PO; lg3 04:41 Follow up: Response: No adverse reaction lg3 03:46 Drug: SEROquel PO 25 mg PO once Route: PO; lg3 04:41 Follow up: Response: No adverse reaction lg3 04:41 Not Given (Patient Refused): haloperidol5 mg IVP once lg3 Disposition Summary: 11/05/24 04:37 Discharge Ordered Notes: Location: Home rn Problem: new rn Symptoms: have improved rn Condition: Stable rn Diagnosis - Dehydration rn - Other muscle spasm rn - Muscle weakness (generalized) rn Followup: rn - With: Private Physician - When: As needed - Reason: Recheck today's complaints, Re-evaluation by your physician Discharge Instructions: - Discharge Summary Sheet rn - Dehydration, Adult rn - Leg Cramps rn - Weakness rn - Hypokalemia rn Forms: - Medication Reconciliation Form rn - Antibiotic rn corrections - Prescription Opioid Use rn - Patient Portal Instructions rn - Leadership Thank You Letter rn Signatures: Dispatcher [employer] EDNH Prashanth Mancini MD MD rn Able, Lacie, RN RN lg3 Corrections: (The following items were deleted from the chart) 02:30 02:30 CBC+H.LAB.BRZ ordered. EDMS EDMS 02:30 02:30 BASIC METABOLIC PANEL+C.LAB.BRZ ordered. EDMS EDMS 02:30 02:30 CREATINE PHOSPHOKINASE+C.LAB.BRZ ordered. EDMS EDMS
[2024-11-05 05:11] VITALS: TEMP 98.1; O2SAT 100
[2024-11-05 05:13] VITALS: BP 137/88
== END 2024-11-05 05:03 | disposition home or self-care (01) ==
LOC: ER 02:23
DX: M62.838 Other muscle spasm (principal); E86.0 Dehydration; M62.81 Muscle weakness (generalized); Z59.00 Homelessness unspecified
CPT/HCPCS: 36415; 80048; 80307; 82550; 85025; 93005; 96360; 99285; J7030